=== PATIENT | female | born 1960 | race African-American/Black ===

== ENCOUNTER → 2017-03-03 07:39 | Outpatient (CLI) | payer MEDICAID | LOC: D.MAMMO 02-14 14:45 | DX: Z12.31 Encounter for screening mammogram for malignant neoplasm of breast (principal) ==

== ENCOUNTER → 2017-04-11 14:33 | Outpatient (CLI) | payer MEDICAID | END | disposition home or self-care (01) | LOC: D.MAMMO 10:30 | DX: N64.89 Other specified disorders of breast (principal) ==

== ENCOUNTER → 2017-12-08 17:20 | Outpatient (CLI) | payer MEDICAID | END | disposition home or self-care (01) | LOC: D.MAMMO 13:30 | DX: R92.8 Other abnormal and inconclusive findings on diagnostic imaging of breast (principal) ==

== ENCOUNTER 2019-07-13 08:00 | Outpatient (CLI) | payer MEDICAID | END 2019-07-13 23:59 | disposition home or self-care (01) | LOC: D.MAMMO 08:00 | PROVIDERS: ATTEND Family Medicine | DX: Z12.31 Encounter for screening mammogram for malignant neoplasm of breast (principal) ==

== ENCOUNTER 2020-03-13 08:54 | Emergency (ER) | payer MEDICAID ==
[~2020-03-13] VITALS: Ht 167.6 cm; Wt 104.5 kg
[2020-03-13 09:16] VITALS: BP 143/90; Ht 167.6 cm; Wt 104.5 kg
[2020-03-13] MEDS ORDERED: PLAVIX75 MG PO (09:18)
[2020-03-13] MEDS ORDERED: TENORMIN50 MG PO (09:18)
[2020-03-13] MEDS ORDERED: HYDROCHLOROTHIA25 MG PO (09:19)
[2020-03-13] MEDS ORDERED: ASPIRIN81 MG PO (09:19)
[2020-03-13] MEDS ORDERED: STARLIX120 MG PO (09:20)
[2020-03-13] MEDS ORDERED: LIPITOR80 MG PO (09:20)
[2020-03-13] MEDS ORDERED: GLUCOPHAGE500 MG PO (09:20)
== END 2020-03-13 11:10 | disposition home or self-care (01) ==
LOC: D.ER 08:54
DX: S61.216A Laceration without foreign body of right little finger without damage to nail, initial encounter (principal); W25.XXXA Contact with sharp glass, initial encounter; Y93.9 Activity, unspecified; Y92.9 Unspecified place or not applicable; E11.9 Type 2 diabetes mellitus without complications; Z86.73 Personal history of transient ischemic attack (TIA), and cerebral infarction without residual deficits; I10 Essential (primary) hypertension; Z79.84 Long term (current) use of oral hypoglycemic drugs